=== PATIENT | female | born 1990 | race Caucasian/White ===

== ENCOUNTER → 2022-03-13 | Outpatient (CLI) | payer BC ==
[~2022-03-13] MED LIST: CLINDAMYCIN 300MG PO; MIXED AMPHETAMI20 M1 PO; QUETIAPINE FUMA50 MG PO; SERTRALINE HYD100 MG PO
== END ==
LOC: LAB 15:24
DX: R82.998 Other abnormal findings in urine (principal); Z33.1 Pregnant state, incidental

== ENCOUNTER 2022-03-20 18:25 | Emergency (ER) | payer BC ==
[~2022-03-20] VITALS: Ht 152.4 cm; Wt 70.8 kg
[2022-03-20] MEDS ORDERED: CLINDAMYCIN 300MG PO (18:48)
[2022-03-20] MEDS ORDERED: SERTRALINE HYD100 MG PO (18:48)
[2022-03-20] MEDS ORDERED: MIXED AMPHETAMI20 M1 PO (18:48)
[2022-03-20] MEDS ORDERED: QUETIAPINE FUMA50 MG PO (18:48)
[2022-03-20 18:52] LABS: BASO # 0.04 K/mm3 (0.02-0.10); EOS % 3.7 % (1.0-5.0); HEMOGLOBIN 13.2 g/dL (12.5-16.0); LYMPH# 1.67 K/mm3 (1.50-4.00); MEAN CELL VOLUME 87 fl (78-100); MEAN CORPUSCULAR HEMOGLOBIN 29 pg (27-31); MEAN CORPUSCULAR HGB CONC 34 g/dL (33-37); MEAN PLATELET VOLUME 10.5 fl (7.4-10.4); MONO # 0.43 K/mm3 (0.20-0.80); NEU # 3.09 K/mm3 (1.40-6.50); PLATELET COUNT 263 K/mm3 (130-400); RED BLOOD COUNT 4.49 M/mm3 (4.10-5.30); RED CELL DISTRIBUTION WIDTH 12.7 % (11.5-14.5); WHITE BLOOD COUNT 5.4 K/mm3 (4.8-10.8)
[2022-03-20 19:04] LABS: ALBUMIN 4.3 g/dL (3.5-5.0); POTASSIUM 3.8 mmol/L (3.5-5.1)
[2022-03-20 19:05] LABS: CALCIUM 9.3 mg/dL (8.3-10.5)
[2022-03-20 19:07] LABS: TOTAL PROTEIN 7.4 g/dL (6.4-8.3)
[2022-03-20 19:08] LABS: TOTAL BILIRUBIN 0.3 mg/dL (0.2-1.2)
[2022-03-20 20:11] LABS: URINE APPEARANCE HAZY; URINE BILIRUBIN NEGATIVE (NEGATIVE); URINE BLOOD NEGATIVE (NEGATIVE); URINE COLOR YELLOW; URINE GLUCOSE NEGATIVE (NEGATIVE); URINE KETONE NEGATIVE (NEGATIVE); URINE LEUKOCYTE ESTERASE 1+ (NEGATIVE); URINE MUCUS PRESENT (NOT PRESENT); URINE NITRATE POSITIVE (NEGATIVE); URINE PROTEIN(semi-quant) TRACE (NEGATIVE); URINE UROBILINOGEN NORMAL (NORMAL)
[2022-03-20 20:33] VITALS: BP 104/73
== END 2022-03-20 20:33 | disposition short-term general hospital (02) ==
LOC: ED 18:25
PROVIDERS: Physician Assistant
DX: O20.9 Hemorrhage in early pregnancy, unspecified (principal); O21.9 Vomiting of pregnancy, unspecified; O26.891 Other specified pregnancy related conditions, first trimester; R10.32 Left lower quadrant pain; Z3A.01 Less than 8 weeks gestation of pregnancy
CPT/HCPCS: J2405; J3010